=== PATIENT | female | born 1980 | race Caucasian/White ===

== ENCOUNTER 2016-05-25 09:44 | Emergency (ER) | payer MEDICARE, OTHER | END 2016-05-25 10:34 | disposition home or self-care (01) | LOC: ER 09:44 | DX: J06.9 Acute upper respiratory infection, unspecified (principal); J02.9 Acute pharyngitis, unspecified; F17.210 Nicotine dependence, cigarettes, uncomplicated; Z79.811 Long term (current) use of aromatase inhibitors | CPT/HCPCS: 87070; 87880; 99283 ==

== ENCOUNTER 2016-06-12 10:53 | Emergency (ER) | payer MEDICARE, OTHER ==
[2016-06-12 11:45] LABS: BASO % 0.3 % (0.1-1.2); EOS # 0.1 10_X3_uL (0.0-0.4); EOS % 2.2 % (0.7-5.8); HEMATOCRIT 39.3 % (34-45); HEMOGLOBIN 13.3 g/dL (11.2-15.7); LYMPH # 1.3 10_X3_uL (1.2-3.7); LYMPH % 41.6 % (19.3-51.7); MEAN CORPUSCULAR HEMOGLOBIN 31.8 pg (27.0-33.0); MEAN CORPUSCULAR HGB CONC 33.8 g/dL (32.0-36.0); MEAN PLATELET VOLUME 11.5 fl (7.5-11.5); MONO # 0.8 10_X3_uL (0.2-0.9); MONO % 23.9 % (4.7-12.5); PLATELET COUNT 167 x10_3/uL (182-369); RED BLOOD COUNT 4.18 x10_6/uL (3.9-5.2); RED CELL DISTRIBUTION WIDTH 13.2 % (11.7-14.4); WHITE BLOOD COUNT 3.2 x10_3/uL (4.0-10.0)
== END 2016-06-12 12:18 | disposition home or self-care (01) ==
LOC: ER 10:53
PROVIDERS: Family Medicine
DX: J40 Bronchitis, not specified as acute or chronic (principal); J02.9 Acute pharyngitis, unspecified; J34.89 Other specified disorders of nose and nasal sinuses; Z90.710 Acquired absence of both cervix and uterus; F17.210 Nicotine dependence, cigarettes, uncomplicated; Z85.3 Personal history of malignant neoplasm of breast; Z90.12 Acquired absence of left breast and nipple; Z79.810 Long term (current) use of selective estrogen receptor modulators (SERMs)
CPT/HCPCS: 36415; 85025; 87400; 99283

== ENCOUNTER 2016-08-01 10:53 | Emergency (ER) | payer MEDICARE, OTHER ==
[2016-08-01 11:26] LABS: URINE BILIRUBIN NEGATIVE (NEGATIVE); URINE BLOOD NEGATIVE (NEGATIVE); URINE GLUCOSE (UA) NORMAL (NORMAL); URINE KETONE NEGATIVE (NEGATIVE); URINE LEUKOCYTE ESTERASE NEGATIVE (NEGATIVE); URINE NITRATE NEGATIVE (NEGATIVE); URINE PROTEIN NEGATIVE (NEGATIVE); UROBILINOGEN NORMAL mg/dL (<1.0)
[2016-08-01 11:29] LABS: BASO % 0.4 % (0.1-1.2); EOS # 0.1 10_X3_uL (0.0-0.4); GRAN # 2.1 10_X3_uL (1.6-6.1); GRAN % 40.6 % (34.0-71.1); HEMATOCRIT 37.3 % (34-45); HEMOGLOBIN 12.6 g/dL (11.2-15.7); LYMPH # 2.4 10_X3_uL (1.2-3.7); LYMPH % 47.6 % (19.3-51.7); MEAN CORPUSCULAR HEMOGLOBIN 31.4 pg (27.0-33.0); MEAN CORPUSCULAR HGB CONC 33.8 g/dL (32.0-36.0); MEAN PLATELET VOLUME 11.8 fl (7.5-11.5); MONO # 0.5 10_X3_uL (0.2-0.9); MONO % 9.4 % (4.7-12.5); PLATELET COUNT 173 x10_3/uL (182-369); RED BLOOD COUNT 4.01 x10_6/uL (3.9-5.2); RED CELL DISTRIBUTION WIDTH 13.2 % (11.7-14.4); WHITE BLOOD COUNT 5.1 x10_3/uL (4.0-10.0)
[2016-08-01 12:03] LABS: ALBUMIN 4.3 gm/dL (3.4-5.0); ALKALINE PHOSPHATASE 125 U/L (50-136); ALT/SGPT 16 U/L (3.5-33.9); AMYLASE 69 U/L (15.62-74.58); AST/SGOT 18 U/L (7.04-26.96); BILIRUBIN,TOTAL 0.26 mg/dL (0.0-1.0); BLOOD UREA NITROGEN 9 mg/dL (7-18); CALCIUM 8.9 mg/dL (8.7-10.7); CARBON DIOXIDE 27 mmol/L (21-32); CREATININE 0.6 mg/dL (0.6-1.3); GLUCOSE,RANDOM 96 mg/dL (70-99); LIPASE 43 U/L (6.75-60.75); POTASSIUM 4.2 mmol/L (3.5-5.1); SODIUM 140 mmol/L (136-145); TOTAL PROTEIN 7.1 gm/dL (6.4-8.2)
== END 2016-08-01 12:54 | disposition home or self-care (01) ==
LOC: ER 10:53
PROVIDERS: Emergency Medicine
DX: R10.30 Lower abdominal pain, unspecified (principal); Z85.3 Personal history of malignant neoplasm of breast; F17.210 Nicotine dependence, cigarettes, uncomplicated; Z90.722 Acquired absence of ovaries, bilateral
CPT/HCPCS: 36415; 74150; 80053; 81003; 82150; 83690; 85025; 99070; 99284-25